=== PATIENT | female | born 1950 | race Caucasian/White ===

== ENCOUNTER 2024-02-25 18:08 | Emergency (ER) | payer MEDICARE ==
[2024-02-25 18:30] VITALS: BP 185/79; O2SAT 100
[2024-02-25] MEDS: LIDOCAINE VISCOUS 2% 15 ML UDC MM STA (19:14)
--- NOTE | 2024-02-25 19:59 | ED Physician Documentation ---
History of Present Illness - Stated complaint Stated Complaint: LT FINGER PX - Chief complaint Chief Complaint: Wound - Additonal information Additional information: Patient is a 73-year-old female presenting to the emergency department with left distal finger swelling. She notes symptoms have been going on for the few days after she developed a hangnail. Patient denies any fevers no swelling extending to the palmar surface of distal finger. No swelling extending down finger. No difficulty flexing or extending finger. PD PAST MEDICAL HISTORY - Past Medical History Past Medical History: Yes Cardiovascular: None Respiratory: None Neuro: None Endocrine/Autoimmune: HyPOthyroidism [employer]: Ovarian cysts HEENT: None Psych: Depression, Anxiety Musculoskeletal: Osteoarthritis - Past Surgical History Past Surgical History: Yes General: Cholecystectomy Ortho: Other HEENT: Cataracts, Other Derm: Other - Present Medications Home Medications: Ambulatory Orders Medication Instructions Recorded Confirmed Bacitracin Zinc Oint 1 applic TOP BID #1 each 02/25/24 Levothyroxine Sodium 50 mcg PO DAILY 02/25/24 02/25/24 methylPREDNISolone [Medrol Dose 1 each PO .PACKAGEINSTRUCTIONS 02/25/24 02/25/24 Pack] - Allergies Allergies/Adverse Reactions: Allergies Allergy/AdvReac Type Severity Reaction Status Date / Time levothyroxine sodium Allergy Rash Verified 02/25/24 18:16 [From Synthroid] [id number] Reductase Allergy Rash Verified 02/25/24 18:16 Inhibitor venlafaxine [From Effexor] Allergy Rash Verified 02/25/24 18:16 - Social History Does the pt smoke?: No Smoking Status: Never smoker Does the pt drink ETOH?: No Does the pt have substance abuse?: No - Immunizations Immunizations are current?: Yes - POLST Patient has POLST: No PD ED PE NORMAL - Vitals Vital signs reviewed: Yes - General General: Alert and oriented X 3 - HEENT HEENT: Atraumatic - Neck Neck: Supple, no meningeal sign - Cardiac Cardiac: RRR, No murmur - Respiratory Respiratory: No respiratory distress - Extremities Extremities: Other (Mild swelling to eponychial region of left digit. Patient has full strength intact no swelling extending to palmar region. Full range of motion and good capillary refill intact. Mild fluctuance around region of eponychia.) Results - Vitals Vitals: Vital Signs - 24 hr 08/11/24 18:17 Temperature 36.6 C Heart Rate 69 Respiratory 16 Rate Blood Pressure 185/79 H O2 Saturation 100 Oxygen O2 Source Room air PD Medical Decision Making - ED course Complexity details: reviewed old records, re-evaluated patient, considered differential ED course: Patient is a 73-year-old female she notes she developed swelling around eponychia few days ago and it has progressively gotten worse. She denies any difficulty bending her finger she has no difficulty extending finger. She denies any fevers chills. Patient notes this happened after she developed a hangnail. Incision made into the paronychia region of left index finger. Minimal amount of pus drained. Patient tolerated this well. Wrap applied to distal left finger and patient given topical antibiotic to treat wound with. She is instructed to watch for any worsening swelling knee swelling developing around to the palmar region of the left distal index finger. She is instructed to return with any fevers worsening swelling difficulty flexing or extending finger . Patient understands and is agreeable with this plan Departure - Departure Disposition: 01 Home, Self Care Clinical Impression: Paronychia of left index finger Condition: Good Prescriptions: Bacitracin Zinc Oint 1 applic TOP BID #1 each Comments: Keep wound clean dry change every 12 hours and apply topical antibiotic. Watch for any redness swelling discharge fevers these are signs of worsening infection and return to the emergency department. Make sure to stay out of water and do not soak wound in water. Forms: PCP List Discharge Date/Time: 02/25/24 20:02
[2024-02-25] MEDS: BACITRACIN ZINC OINT 1 PACKET TOP STA (20:06)
== END 2024-02-25 20:02 | disposition home or self-care (01) ==
LOC: ED 18:08
DX: L03.012 Cellulitis of left finger (principal); E03.9 Hypothyroidism, unspecified; Z79.899 Other long term (current) drug therapy
CPT/HCPCS: 26010; 99283; A9270